=== PATIENT | female | born 1985 | race Caucasian/White ===

== ENCOUNTER 2017-10-15 19:57 | Emergency (ER) | END 2017-10-16 02:30 | disposition home or self-care (01) ==

== ENCOUNTER 2017-11-17 09:06 | Emergency (ER) | END 2017-11-17 09:48 | disposition home or self-care (01) ==

== ENCOUNTER 2018-06-29 19:36 | Emergency (ER) | END 2018-06-29 22:53 | disposition home or self-care (01) ==

== ENCOUNTER 2018-09-24 14:08 | Emergency (ER) | payer SELFPAY ==
[~2018-09-24] VITALS: Wt 63.6 kg
[~2018-09-24 14:08] MED LIST: ACET500C5 PO; AMOX500C2 PO; BEN25 PO; CETI10CA PO; EPIN0.3P4 INJ; FAMO-96 PO; IBUP-1542 PO; MED4DP PO
[2018-09-24 14:17] VITALS: BP 108/73; PULSE 112; RESP 20
[2018-09-24] MEDS ORDERED: D-ME118S24 PO (14:37)
[2018-09-24] MEDS ORDERED: AMOX500C2 PO (14:37)
[2018-09-24] MEDS ORDERED: IBUP-1542 PO (14:37)
--- NOTE | 2018-09-24 14:39 | ERD ---
ER Documentation Chief Complaint Chief Complaint earache, sore throat, back pain, fever ROS All systems reviewed and are negative except as per history of present illness. Medications Home Meds Active Scripts Ibuprofen* (Motrin*) 600 Mg Tab, 600 MG PO Q6H PRN for PAIN AND OR ELEVATED TEMP, #30 TAB Prov:CHANG MASON DO 09/24/18 D-Methorphan Hb/P-Epd HCl/Bpm (Afgsoaadlq-Zrrdorqxedj-Ea Syr) 118 Ml Syrup, 5 ML PO Q4H PRN for COUGH, #1 BOTTLE Prov:CHANG MASON DO 09/24/18 Amoxicillin* (Amoxicillin*) 500 Mg Cap, 500 MG PO TID for sinusitis for 7 Days, CAP Prov:CHANG MASON DO 09/24/18 Ibuprofen* (Motrin*) 600 Mg Tab, 600 MG PO Q6, #30 TAB Prov:LUCHO THOMPSON PA-C 06/29/18 Ibuprofen* (Motrin*) 600 Mg Tab, 600 MG PO Q6, #30 TAB Prov:HAWA CONTRERAS PA-C 11/17/17 Acetaminophen* (Tylophen*) 500 Mg Capsule, 1 CAP PO Q6H PRN for PAIN AND OR ELEVATED TEMP, #30 CAP Prov:HAWA CONTRERAS PA-C 11/17/17 Amoxicillin* (Amoxicillin*) 500 Mg Cap, 500 MG PO TID for 10 Days, CAP Prov:HAWA CONTRERAS-C 11/17/17 Epinephrine (Epipen 2-Jose) 0.3 Mg/0.3 Ml Pen.injctr, 1 EA INJ ONCE PRN for ALLERGIC REACTION, #1 EA Prov:ADELFO,KRISTIE 10/16/17 Famotidine* (Pepcid*) 20 Mg Tablet, 20 MG PO BID for 7 Days, TAB Prov:ADELFO,KRISTIE 10/16/17 Methylprednisolone* (Medrol* DOSE PACK) 4 Mg/Dose-Pack Tab.ds.pk, 4 MG PO . DIRECTED for 7 Days, PACKET Prov:ADELFO,KRISTIE 10/16/17 Diphenhydramine Hcl* (Benadryl*) 25 Mg Cap, 25 MG PO Q6, #30 CAP Prov:ADELFO,KRISTIE 10/16/17 Cetirizine Hcl* (Zyrtec*) 10 Mg Capsule, 10 MG PO DAILY, #10 TAB.CHEW Prov:KRISTIE EMANUEL 10/16/17 Allergies Allergies: Coded Allergies: No Known Allergy (Unverified , 06/29/18) PMhx/Soc History of Surgery: Yes () Anesthesia Reaction: No Hx Neurological Disorder: No Hx Respiratory Disorders: No Hx Cardiac Disorders: No Hx Psychiatric Problems: No Hx Miscellaneous Medical Probl: No Hx Alcohol Use: No Hx Substance Use: No Hx Tobacco Use: No Physical Exam Vitals Vital Signs Date Temp Pulse Resp B/P (MAP) Pulse Ox O2 O2 Flow FiO2 Time Delivery Rate 09/24/18 101.2 112 20 108/73 99 14:17 (85) Physical Exam Const: No acute distress Head: Atraumatic Eyes: Normal Conjunctiva ENT: Normal External Ears, Nose and Mouth. Neck: Full range of motion. No meningismus. Resp: Clear to auscultation bilaterally Cardio: Regular rate and rhythm, no murmurs Abd: Soft, non tender, non distended. Normal bowel sounds Skin: No petechiae or rashes Back: No midline or flank tenderness Ext: No cyanosis, or edema Neur: Awake and alert Psych: Normal Mood and Affect Departure Diagnosis: Primary Impression: Sinusitis Patient Instructions: Sinusitis, Abx Tx Referrals: [facility] YOU HAVE RECEIVED A MEDICAL SCREENING EXAM AND THE RESULTS INDICATE THAT YOU DO NOT HAVE A CONDITION THAT REQUIRES URGENT TREATMENT IN THE EMERGENCY DEPARTMENT. FURTHER EVALUATION AND TREATMENT OF YOUR CONDITION CAN WAIT UNTIL YOU ARE SEEN IN YOUR DOCTORS OFFICE WITHIN THE NEXT 1-2 DAYS. IT IS YOUR RESPONSIBILITY TO MAKE AN APPOINTMENT FOR FOLOW-UP CARE. IF YOU HAVE A PRIMARY DOCTOR --you should call your primary doctor and schedule an appointment IF YOU DO NOT HAVE A PRIMARY DOCTOR YOU CAN CALL OUR PHYSICIAN REFERRAL HOTLINE AT IF YOU CAN NOT AFFORD TO SEE A PHYSICIAN YOU CAN CHOSE FROM THE FOLLOWING [facility] [address] [place] [facility] [address] [facility] [address] [facility] [address] [facility]. [facility] [address] [facility]. [facility] [address] Additional Instructions: Llame al doctor MAANA y claudia jamel DMITRY PARA DENTRO DE 1-2 NARVAEZ.Dgale a la secretaria que nosotros le instruimos hacer esta dmitry.Avise o llame si cuello condicin se empeora antes de la dmitry. Regresa aqui si peor o no mejor. CHANG MASON DO Sep 24, 2018 14:39
== END 2018-09-24 15:00 | disposition home or self-care (01) ==
LOC: FTE 14:08
DX: J32.9 Chronic sinusitis, unspecified (principal)
CPT/HCPCS: 99283